=== PATIENT | female | born 1990 | race American Indian/Alaskan Native ===

== ENCOUNTER 2019-05-05 02:53 | Outpatient (CLI) | payer BC ==
[2019-05-05] MEDS ORDERED: LACTATED RINGERS 1,000 ML IV ONE (03:44)
[2019-05-05 04:41] LABS: Hematocrit 29.5 % (30.3-42.9); Hemoglobin 9.3 gm/dl (10.1-14.3); Mean Corpuscular HGB Conc 32 % (30-34); Mean Corpuscular Volume 74 fl (79-97); Platelet Count 126 K/mm3 (140-440); Red Blood Count 3.98 M/mm3 (3.65-5.03); Red Cell Distribution Width 16.8 % (13.2-15.2)
[2019-05-05 05:05] LABS: Bacteria,Urine 1+ /HPF (Negative); Bilirubin,Urine NEG (Negative); Blood,Urine NEG (Negative); Color,Urine Yellow (Yellow); Mucus,Urine 3+ /HPF; Urobilinogen,Urine < 2.0 mg/dL (<2.0)
[2019-05-05 05:21] VITALS: BP 122/64
--- NOTE | 2019-05-05 06:30 | Ultrasound Report ---
LIMITED TRANSABDOMINAL OB PELVIC ULTRASOUND INDICATION / CLINICAL INFORMATION: Vaginal bleeding. Rule out placenta previa. COMPARISON: None available. FINDINGS: There is a single intrauterine with an estimated sonographic gestational age of 31 weeks 3 days and MARITZA of 07/04/2020. The heart rate is 142 bpm. presentation is cephalic. The place nta is located posteriorly, is grade 1 and is free of the os. Amniotic fluid volume is normal with an ASTER of 9.1 cm. The cervix measures 3.8 cm in length and the internal os is closed. The estimated fet al weight is 1707 +/- 253 g. There are 2 adjacent fibroids in the uterus on the right laterally, the largest of which measures 5.7 cm. IMPRESSION: 1. Single viable 31 week 3 day intrauterine . 2. No evidence of placenta previa or abruption. 3. 2 uterine fibroids, the largest of which measures 5.7 cm. Signer Name: Reagan Garcia MD Signed: 05/05/2019 6:25 AM Workstation Name: [id number]
== END 2019-05-05 05:45 | disposition home or self-care (01) ==
LOC: TRG 02:53
PROVIDERS: ATTEND Obstetrics & Gynecology
DX: O34.13 Maternal care for benign tumor of corpus uteri, third trimester (principal); D25.9 Leiomyoma of uterus, unspecified; O26.853 Spotting complicating pregnancy, third trimester; Z3A.32 32 weeks gestation of pregnancy
CPT/HCPCS: 36415; 59025; 76816; 81001; 85027; 86850; 86900; 86901; 96360; J7120